=== PATIENT | male | born 1990 | race Caucasian/White ===

== ENCOUNTER 2016-07-04 01:15 | Emergency (ER) | payer OTHER ==
[~2016-07-04] VITALS: Ht 167.6 cm; Wt 79.4 kg
[2016-07-04 01:30] VITALS: BP 154/59
--- NOTE | 2016-07-04 01:33 | NUR ---
Dr. Gaytan evaluating patient
--- NOTE | 2016-07-04 01:33 | NUR ---
PT TAKEN TO OF
--- NOTE | 2016-07-04 01:35 | NUR ---
26Y/M PT. PRESNENTS TO ED WITH C/O TOOTHACHE X 2 DAYS. PT. STATES HAVING TOOTHACHE X 2 DAYS WITH HEADACH. NO MEDICAL HX. AAO X4, AMBULATORY WITH STEADY GAIT. C/O TOOTHACHE 11/12. VSS, NO S/SX OF DISTRESS AT THIS TIME. ER MADE AWARE OF PT. STATUS.
--- NOTE | 2016-07-04 01:45 | NUR ---
Patient discharged with v/s stable. Written and verbal after care instructions given and explained. Patient alert, oriented and verbalized understanding of instructions. Ambulatory with steady gait. All questions addressed prior to discharge. ID band removed. Patient advised to follow up with PMD. Rx of NAPROSYN 500 MG, NORCO 5/325MG, PENICILLIN VK 500 MG given. Patient educated on indication of medication including possible reaction and side effects. Opportunity to ask questions provided and answered.
[2016-07-04 01:46] VITALS: BP 145/60
== END 2016-07-04 01:45 | disposition home or self-care (01) ==
LOC: MED 01:15
DX: K08.89 Other specified disorders of teeth and supporting structures (principal)